=== PATIENT | female | born 1965 | race Two or more races ===

== ENCOUNTER 2021-06-20 13:05 | Inpatient (IN) | payer MEDICAID, OTHER ==
[~2021-06-20] VITALS: Ht 160 cm; Wt 90.5 kg
[2021-06-20 13:38] LABS: Basophils # (auto) 0 10 ^3/uL (0-0.2); Basophils % (auto) 0.2 % (0.0-2.0); Eosinophils # (auto) 0 10 ^3/uL (0-0.8); Eosinophils % (auto) 0.5 % (0.0-7.0); Hematocrit 39.8 % (36.0-46.0); Hemoglobin 13.7 g/dL (12.2-16.2); Lymphocytes # (auto) 1.4 10 ^3/uL (0.4-5.4); Mean Corpuscular Hemoglobin 29.1 pg (28.0-32.0); Mean Corpuscular Hgb Conc. 34.4 g/dL (32.0-36.0); Mean Corpuscular Volume 84.6 fL (80.0-100.0); Monocytes # (auto) 0.3 10 ^3/uL (0-1.3); Monocytes % (auto) 4.5 % (0.0-12.0); Neutrophils # (auto) 4.3 10 ^3/uL (1.6-8.6); Neutrophils % (auto) 71.8 % (37.0-80.0); Nucleated Red Blood Cells % 0.1 %; Red Cell Distribution Width 13.4 % (11.8-14.3); White Blood Cell 5.9 10^3/uL (4.4-10.8)
[2021-06-20 14:02] LABS: Albumin 3.2 g/dL (3.4-5.0); Anion Gap 9 (5-15); Blood Urea Nitrogen 13 mg/dL (7-18); Calcium 9.3 mg/dL (8.5-10.1); Carbon Dioxide 24 mmol/L (21-32); Chloride 102 mmol/L (98-107); Glucose 117 mg/dL (74-106); Magnesium 2.3 mg/dL (1.6-2.6); Potassium 3.9 mmol/L (3.5-5.1); Sodium 135 mmol/L (136-145)
[2021-06-20 14:07] LABS: Alanine Aminotransferase 44 U/L (13-56); Alkaline Phosphatase 76 U/L (45-117); Aspartate Aminotransferase 45 U/L (15-37); BUN/Creatinine Ratio 15.1; Bilirubin, Total 0.5 mg/dL (0.2-1.0); GFR African American 87 mL/min; GFR Non-African American 72 mL/min; Total Protein 7.9 g/dL (6.4-8.2)
[2021-06-20] MEDS ORDERED: DexAMETHasone SOD PHOS 10MG/1ML VIAL INJ IV ONE (15:15)
[2021-06-20] MEDS ORDERED: DEXTROSE (50%) 50ML SYRG IV PRN (16:45)
[2021-06-20] MEDS ORDERED: MORPHINE SULFATE INJECTION 2 MG/ML SYRG IV PRN (16:45)
[2021-06-20] MEDS ORDERED: ACETAMINOPHEN 500 MG TAB PO PRN (16:45)
[2021-06-20] MEDS ORDERED: NITROGLYCERIN 0.4 MG SL TAB SL PRN (16:45)
[2021-06-20 17:38] LABS: Thyroid Stimulating Hormone 1.85 uIU/mL (0.358-3.74)
[2021-06-20] MEDS: AZITHROMYCIN 500MG/ 250ML 250 ML IV SCH (17:50)
[2021-06-20] MEDS: InsuLIN REG 1unit/0.01ml Soln (100units/ml) SC SCH ×2 (17:51→22:29)
[2021-06-20] MEDS: ACCU-CHEK COMFORT CURVE STRIP VI SCH ×2 (17:52→22:21)
[2021-06-20 18:05] LABS: Urine Bacteria NONE SEEN /hpf (None Seen); Urine Blood Negative /uL (Negative); Urine Specific Gravity 1.011 (1.001-1.035); Urine WBC 4 /hpf (0 - 5)
[2021-06-20] MEDS: ALBUTEROL SULF HFA 90MCG INH 200DOSE IN PRN (19:28)
[2021-06-20 20:13] VITALS: BP 106/68
[2021-06-20] MEDS: ENOXAPARIN SOD 40 MG/0.4 ML SYRINGE SC SCH (22:29)
[2021-06-21] MEDS: ACCU-CHEK COMFORT CURVE STRIP VI SCH ×4 (06:46→22:16)
[2021-06-21] MEDS: InsuLIN REG 1unit/0.01ml Soln (100units/ml) SC SCH ×4 (06:49→22:24)
[2021-06-21] MEDS ORDERED: IVERMECTIN 3 MG TAB PO SCH (10:00)
[2021-06-21] MEDS: ZINC SULFATE 220mg CAP or TAB PO SCH (10:32)
[2021-06-21] MEDS: CHOLECALCIFEROL (VITD3) 2,000 UNIT CAP/TAB PO SCH (10:32)
[2021-06-21] MEDS: ASCORBIC ACID 1,000 MG TAB PO SCH (10:33)
[2021-06-21] MEDS: AZITHROMYCIN 500MG/ 250ML 250 ML IV SCH (10:33)
[2021-06-21] MEDS: DexAMETHasone SOD PHOS 10MG/1ML VIAL INJ IV SCH (10:33)
[2021-06-21] MEDS: ENOXAPARIN SOD 40 MG/0.4 ML SYRINGE SC SCH ×2 (10:33→22:21)
[2021-06-21] MEDS ORDERED: REMDESIVIR PER PHARMACY 0 ML IV SCH (10:45)
[2021-06-21 12:01] VITALS: BP 116/73
[2021-06-21] MEDS ORDERED: REMDESIVIR 200 MG in NS 210ml LOADING DOSE ADULT IV ONE (15:00)
[2021-06-21] MEDS ORDERED: IOHEXOL 350 MG/ML 100ML IJ ONE (16:21)
[2021-06-21] MEDS: DOXYCYCLINE 100MG/250ML 250 ML IV SCH (17:24)
[2021-06-21 20:00] VITALS: BP 102/62
[2021-06-21] MEDS ORDERED: INSULIN LANTUS (GLARGINE) 1 /0.01ml (100units/ml) SC SCH (22:00)
[2021-06-21] MEDS: BUDESONIDE (INHALATION) 180 MCG IH IN SCH (22:00)
[2021-06-21] MEDS: FAMOTIDINE 20 MG TAB PO SCH (22:21)
[2021-06-21 22:29] VITALS: BP 102/62
[2021-06-22] MEDS: ALBUTEROL SULF HFA 90MCG INH 200DOSE IN PRN ×3 (00:35→22:33)
[2021-06-22] MEDS ORDERED: METF-370 PO (00:53)
[2021-06-22] MEDS: DOXYCYCLINE 100MG/250ML 250 ML IV SCH ×2 (04:25→16:51)
[2021-06-22 05:06] VITALS: BP 97/57
[2021-06-22] MEDS: ACCU-CHEK COMFORT CURVE STRIP VI SCH ×4 (06:05→21:56)
[2021-06-22] MEDS: InsuLIN REG 1unit/0.01ml Soln (100units/ml) SC SCH ×4 (06:06→22:04)
[2021-06-22] MEDS: BUDESONIDE (INHALATION) 180 MCG IH IN SCH ×2 (06:54→22:00)
[2021-06-22 06:57] LABS: INR 0.99 (0.9-1.15)
[2021-06-22 07:00] LABS: Albumin 2.9 g/dL (3.4-5.0); Calcium 9.2 mg/dL (8.5-10.1); Magnesium 2.6 mg/dL (1.6-2.6)
[2021-06-22 07:09] LABS: Bilirubin, Total 0.3 mg/dL (0.2-1.0); CRP High Sensitivity 4.5 mg/dL (< 0.3); Total Protein 7.5 g/dL (6.4-8.2)
[2021-06-22] MEDS: ZINC SULFATE 220mg CAP or TAB PO SCH (08:52)
[2021-06-22] MEDS: ASCORBIC ACID 1,000 MG TAB PO SCH (08:52)
[2021-06-22] MEDS: ENOXAPARIN SOD 40 MG/0.4 ML SYRINGE SC SCH ×2 (08:52→21:56)
[2021-06-22] MEDS: CHOLECALCIFEROL (VITD3) 2,000 UNIT CAP/TAB PO SCH (08:52)
[2021-06-22] MEDS: DexAMETHasone SOD PHOS 10MG/1ML VIAL INJ IV SCH (08:52)
[2021-06-22] MEDS: FAMOTIDINE 20 MG TAB PO SCH ×2 (08:52→21:55)
[2021-06-22 09:00] VITALS: BP 101/50
[2021-06-22 09:20] LABS: BUN/Creatinine Ratio 25.7
[2021-06-22 13:00] VITALS: BP 100/60
[2021-06-22 14:50] VITALS: BP 98/58
[2021-06-22] MEDS: REMDESIVIR 100mg 100 MG in SODIUM CHL 0.9% 230 ML IV SCH (15:04)
[2021-06-22 16:47] VITALS: BP 101/73
[2021-06-22] MEDS: INSULIN LANTUS (GLARGINE) 1 /0.01ml (100units/ml) SC SCH (22:04)
[2021-06-22 22:46] VITALS: BP 100/57
[2021-06-23] MEDS: DOXYCYCLINE 100MG/250ML 250 ML IV SCH ×2 (04:07→17:00)
[2021-06-23 05:07] VITALS: BP 92/62
[2021-06-23] MEDS: ACCU-CHEK COMFORT CURVE STRIP VI SCH ×4 (06:13→22:13)
[2021-06-23] MEDS: InsuLIN REG 1unit/0.01ml Soln (100units/ml) SC SCH ×4 (06:19→22:23)
[2021-06-23] MEDS: BUDESONIDE (INHALATION) 180 MCG IH IN SCH ×2 (06:51→20:59)
[2021-06-23] MEDS: ALBUTEROL SULF HFA 90MCG INH 200DOSE IN PRN (06:51)
[2021-06-23 06:59] LABS: Basophils # (auto) 0 10 ^3/uL (0-0.2); Basophils % (auto) 0.2 % (0.0-2.0); Eosinophils # (auto) 0 10 ^3/uL (0-0.8); Hematocrit 43.8 % (36.0-46.0); Hemoglobin 14.4 g/dL (12.2-16.2); Lymphocytes # (auto) 1.3 10 ^3/uL (0.4-5.4); Lymphocytes % (auto) 21.5 % (10.0-50.0); Mean Corpuscular Hemoglobin 28.2 pg (28.0-32.0); Mean Corpuscular Hgb Conc. 32.8 g/dL (32.0-36.0); Mean Corpuscular Volume 85.9 fL (80.0-100.0); Monocytes # (auto) 0.5 10 ^3/uL (0-1.3); Monocytes % (auto) 8.5 % (0.0-12.0); Neutrophils # (auto) 4.1 10 ^3/uL (1.6-8.6); Neutrophils % (auto) 69.8 % (37.0-80.0); Nucleated Red Blood Cells % 0.1 %; Red Cell Distribution Width 13.5 % (11.8-14.3); White Blood Cell 5.9 10^3/uL (4.4-10.8)
[2021-06-23 07:31] LABS: Potassium 3.8 mmol/L (3.5-5.1)
[2021-06-23 07:41] LABS: BUN/Creatinine Ratio 27.9; Calcium 9.6 mg/dL (8.5-10.1)
[2021-06-23] MEDS: DexAMETHasone SOD PHOS 10MG/1ML VIAL INJ IV SCH (08:28)
[2021-06-23] MEDS: ASCORBIC ACID 1,000 MG TAB PO SCH (08:28)
[2021-06-23] MEDS: CHOLECALCIFEROL (VITD3) 2,000 UNIT CAP/TAB PO SCH (08:28)
[2021-06-23] MEDS: ZINC SULFATE 220mg CAP or TAB PO SCH (08:28)
[2021-06-23] MEDS: FAMOTIDINE 20 MG TAB PO SCH ×2 (08:28→22:12)
[2021-06-23] MEDS: ENOXAPARIN SOD 40 MG/0.4 ML SYRINGE SC SCH ×2 (08:29→22:12)
[2021-06-23 09:00] VITALS: BP 92/67
[2021-06-23 13:00] VITALS: BP 105/72
[2021-06-23] MEDS: REMDESIVIR 100mg 100 MG in SODIUM CHL 0.9% 230 ML IV SCH (16:09)
[2021-06-23 17:00] VITALS: BP 98/71
[2021-06-23 19:15] VITALS: BP 98/71
[2021-06-23 21:50] VITALS: BP 143/65
[2021-06-23] MEDS: INSULIN LANTUS (GLARGINE) 1 /0.01ml (100units/ml) SC SCH (22:14)
[2021-06-24] MEDS: DOXYCYCLINE 100MG/250ML 250 ML IV SCH ×2 (04:22→16:23)
[2021-06-24 05:30] VITALS: BP 115/74
[2021-06-24] MEDS: InsuLIN REG 1unit/0.01ml Soln (100units/ml) SC SCH ×4 (06:27→22:15)
[2021-06-24] MEDS: ACCU-CHEK COMFORT CURVE STRIP VI SCH ×4 (06:27→22:12)
[2021-06-24] MEDS: ALBUTEROL SULF HFA 90MCG INH 200DOSE IN PRN ×2 (08:08→19:35)
[2021-06-24] MEDS: BUDESONIDE (INHALATION) 180 MCG IH IN SCH ×2 (08:08→19:35)
[2021-06-24 09:00] VITALS: BP 124/67
[2021-06-24] MEDS: ASCORBIC ACID 1,000 MG TAB PO SCH (09:12)
[2021-06-24] MEDS: FAMOTIDINE 20 MG TAB PO SCH ×2 (09:12→23:10)
[2021-06-24] MEDS: ZINC SULFATE 220mg CAP or TAB PO SCH (09:12)
[2021-06-24] MEDS: DexAMETHasone SOD PHOS 10MG/1ML VIAL INJ IV SCH (09:12)
[2021-06-24] MEDS: CHOLECALCIFEROL (VITD3) 2,000 UNIT CAP/TAB PO SCH (09:13)
[2021-06-24] MEDS: ENOXAPARIN SOD 40 MG/0.4 ML SYRINGE SC SCH ×2 (09:13→22:12)
[2021-06-24 13:00] VITALS: BP 84/59
[2021-06-24] MEDS: REMDESIVIR 100mg 100 MG in SODIUM CHL 0.9% 230 ML IV SCH (14:57)
[2021-06-24 17:00] VITALS: BP 109/71
[2021-06-24 22:00] VITALS: BP 99/65
[2021-06-24] MEDS: INSULIN LANTUS (GLARGINE) 1 /0.01ml (100units/ml) SC SCH (22:14)
[2021-06-25] MEDS: DOXYCYCLINE 100MG/250ML 250 ML IV SCH ×2 (04:32→16:30)
[2021-06-25 05:00] VITALS: BP 102/59
[2021-06-25 05:56] LABS: Hematocrit 41.9 % (36.0-46.0); Hemoglobin 14.3 g/dL (12.2-16.2); Mean Corpuscular Hemoglobin 29.1 pg (28.0-32.0); Mean Corpuscular Hgb Conc. 34.1 g/dL (32.0-36.0); Mean Corpuscular Volume 85.6 fL (80.0-100.0); Potassium 4.5 mmol/L (3.5-5.1); Red Cell Distribution Width 13.3 % (11.8-14.3); White Blood Cell 6.7 10^3/uL (4.4-10.8)
[2021-06-25 06:07] LABS: Basophils % (manual) 0 (0.0-2.0); Blast Cells 0; Eosinophils % (manual) 0 (0-7); Metamyelocytes % 0; Promyelocytes % 0; Reactive Lymphocytes 0
[2021-06-25] MEDS: ACCU-CHEK COMFORT CURVE STRIP VI SCH ×3 (06:20→17:20)
[2021-06-25 06:24] LABS: BUN/Creatinine Ratio 28.1; Bilirubin, Total 0.5 mg/dL (0.2-1.0); Calcium 9.1 mg/dL (8.5-10.1); Total Protein 7.7 g/dL (6.4-8.2)
[2021-06-25] MEDS: InsuLIN REG 1unit/0.01ml Soln (100units/ml) SC SCH ×3 (06:28→17:00)
[2021-06-25 06:44] LABS: Band Neutrophils % (manual) 2; Lymphocytes % (manual) 14 (10.0-50.0); Monocytes % (manual) 5 (0-12); Myelocytes % 1
[2021-06-25] MEDS: ALBUTEROL SULF HFA 90MCG INH 200DOSE IN PRN (07:00)
[2021-06-25] MEDS: BUDESONIDE (INHALATION) 180 MCG IH IN SCH (07:00)
[2021-06-25] MEDS: DexAMETHasone SOD PHOS 10MG/1ML VIAL INJ IV SCH (08:41)
[2021-06-25] MEDS: ASCORBIC ACID 1,000 MG TAB PO SCH (08:41)
[2021-06-25] MEDS: ENOXAPARIN SOD 40 MG/0.4 ML SYRINGE SC SCH (08:41)
[2021-06-25] MEDS: ZINC SULFATE 220mg CAP or TAB PO SCH (08:41)
[2021-06-25] MEDS: FAMOTIDINE 20 MG TAB PO SCH (08:41)
[2021-06-25] MEDS: CHOLECALCIFEROL (VITD3) 2,000 UNIT CAP/TAB PO SCH (08:41)
[2021-06-25 09:00] VITALS: BP 106/70
[2021-06-25 13:00] VITALS: BP 98/66
[2021-06-25] MEDS ORDERED: FAMO20TA10 PO (13:28)
[2021-06-25] MEDS ORDERED: ZINC220T6 PO (13:28)
[2021-06-25] MEDS ORDERED: DOXY-286 PO (13:28)
[2021-06-25] MEDS ORDERED: BUDE2SUS3 IN (13:28)
[2021-06-25] MEDS ORDERED: ALBUAER3 IN (13:28)
[2021-06-25] MEDS ORDERED: ASPI-378 PO (13:28)
[2021-06-25] MEDS ORDERED: DEX4T PO (13:28)
[2021-06-25] MEDS ORDERED: ASCO10003 PO (13:28)
[2021-06-25] MEDS: REMDESIVIR 100mg 100 MG in SODIUM CHL 0.9% 230 ML IV SCH (15:00)
== END 2021-06-25 19:00 | disposition home or self-care (01) | DRG 720 ==
LOC: ER 13:05 → TELE 16:35 → TELE-EAST 06-21 20:00
PROVIDERS: ADMIT Nurse Practitioner Acute Care; ATTEND Internal Medicine
PROC: XW033E5 Introduction of Remdesivir Anti-infective into Peripheral Vein, Percutaneous Approach, New Technology Group 5 (ICD-10-PCS; principal; 2021-06-21)
PROC: 05HC33Z Insertion of Infusion Device into Left Basilic Vein, Percutaneous Approach (ICD-10-PCS; 2021-06-23)
PROC: B54NZZA Ultrasonography of Left Upper Extremity Veins, Guidance (ICD-10-PCS; 2021-06-23)
DX: A41.89 Other specified sepsis (principal); J96.00 Acute respiratory failure, unspecified whether with hypoxia or hypercapnia; J12.82 Pneumonia due to coronavirus disease 2019; U07.1 COVID-19; D89.839 Cytokine release syndrome, grade unspecified; E88.09 Other disorders of plasma-protein metabolism, not elsewhere classified; E66.9 Obesity, unspecified; E11.9 Type 2 diabetes mellitus without complications; Z68.35 Body mass index [BMI] 35.0-35.9, adult
CPT/HCPCS: 36415; 36600; 71045; 71275; 80048; 80053; 81001; 82306; 82728; 82805; 82962; 83036; 83605; 83615; 83735; 84443; 84484; 85007; 85025; 85027; 85379; 85610; 86141; 87426; 93005; 93970; 94640; 96365; 96375; G0378; J1100; J1815; J3490